=== PATIENT | female | born 1990 | race Caucasian/White ===

== ENCOUNTER 2024-02-13 13:53 | Emergency (ER) | payer BC, SELFPAY ==
--- NOTE | ~2024-02-13 | CT_ITS ---
EXAMINATION: CT abdomen pelvis wo con DATE: 02/13/2024 17:46 INDICATION: right flank pain TECHNIQUE: Computed tomography (CT) of the abdomen and pelvis was performed without intravenous contr ast. Automated exposure control and iterative reconstruction technique were employed. The dose-length product was 241.61 mGy-cm. COMPARISON: None. FINDINGS: Lower thorax: Unremarkable Liver: Normal. Biliary/Gallbladder: Gallbladder is normal. No bile duct dilation. Pancreas: No mass or duct dilation. Spleen: Normal. Adrenals:No mass. Kidneys: No suspicious mass, obstructing stone, or hydronephrosis. GI tract: No small or large bowel dilation. Normal appendix. Mesentery/Peritoneum: No ascites, mass, or free air. Retroperitoneum: No mass. Pelvis: Pelvic organs are within normal limits. Appropriately positioned IUD. 3 mm calcification in t he right lower pelvis. Mid and distal ureters are very difficult to trace in this patient due to comp ressed regional anatomy and paucity of adjacent fat. Soft Tissues: Soft tissues and body wall unremarkable. Bones: No acute osseous finding. IMPRESSION: 3 mm right lower pelvic calcifications which could represent either a distal ureteral stone or pelvic phlebolith. No hydronephrosis. IUD, in good position. Otherwise, no acute abdominal pelvic process. Reviewed, dictated and finalized at location K. IMPRESSION: 3 mm right lower pelvic calcifications which could represent either a distal ur eteral stone or pelvic phlebolith. No hydronephrosis. IUD, in good position. Otherwise, no acute abdominal pelvic process.
[2024-02-13 14:02] VITALS: BP 118/83; PULSE 96; RESP 18; TEMP 36.5; O2SAT 100
[2024-02-13 16:43] LABS: Add Urine Microscopic? YES; Appearance Urine Clear (Clear); Bacteria Urine None Seen /hpf; Bilirubin Urine Negative (Negative); Blood Urine Negative (Negative); Color Urine Yellow (Yellow); Glucose Urine UA Negative (Negative); Ketones Urine Negative (Negative); Leukocyte Esterase Ur Trace LEU/UL (Negative); Need Manual Microscopic Reviewed; Nitrate Urine Negative (Negative); Non Pathogenic Casts 0-2; Protein Urine Negative (Negative); RBC Urine 0-2 /hpf (0-2); Specific Grav Ur 1.003 (1.001-1.035); Squamous Epithelial Cell Urine None Seen /hpf (Few); Urobilinogen Urine 0.2 mg/dL (<2.0); WBC Urine 0-5 /hpf (0-3)
[2024-02-13 16:45] LABS: BEDSIDEPREGUCG Negative (Negative)
[2024-02-13] MEDS: SODIUM CHLORIDE 0.9% IV 1,000 ML 999 ML IV CONT (17:18)
[2024-02-13] MEDS: KETOROLAC 30 MG/ML VIAL (*BKC) IV PUSH (17:18)
[2024-02-13] MEDS: ONDANSETRON INJ 4 MG/2 ML VIAL IV PUSH (17:18)
--- NOTE | 2024-02-13 19:11 | ED.GENADULT ---
HPI - General Adult General Chief complaint: Back Pain/Injury Stated complaint: right flank pain Time Seen by Provider: 02/13/24 16:15 History of Present Illness HPI narrative: Patient is a 33-year-old female who presents ER with right-sided flank you. Ongoing over the weekend. Aching worse with physical movements. Feels deep. Concerned may be a kidney stone. Mild radiation towards abdomen. No urinary frequency urgency or dysuria. No fevers or chills or sweats. No alleviating factors. Related Data Allergies Allergy/AdvReac Type Severity Reaction Status Date / Time No Known Allergies Allergy Unverified 10/11/16 15:49 Review of Systems Constitutional: Constitutional: Reports no additional constitutional complaints Gastrointestinal: Gastrointestinal: Reports no additional gastrointestinal complaints Genitourinary: Genitourinary: Denies hematuria, Denies nocturia, Denies dysuria, Denies pelvic pain and Reports flank pain Musculoskeletal: Musculoskeletal: Reports back pain, Denies arthralgias and Denies joint swelling PMFSH Past Medical History Medical History (Updated 02/13/24 @ 23:15 by John Camacho MD) Healthy female adult Exam Narrative: GENERAL: Well-appearing, well-nourished, and in no acute distress. HEAD: Normocephalic, atraumatic. ENT: Mucous membranes moist. CHEST: Clear to auscultation. No respiratory distress. HEART: Regular rate and rhythm. Normal peripheral pulses. ABDOMEN: Soft, nontender, nondistended. Back: No midline tenderness in T or L-spine. Mild left-sided low back pain urine year old 3. EXTREMITIES: Normal range of motion. No edema. NEURO: Alert and oriented x3. PSYCH: Normal mood and affect. Course Course Emergency Course: Suspect pelvic consultation and not a kidney stone since there is no blood or urinary symptoms. Will treat with anti-inflammatories muscle relaxers. Vital Signs Vital signs: Vital Signs Temperature 97.7 F 02/13/24 14:02 Pulse Rate 96 02/13/24 14:02 Respiratory Rate 18 02/13/24 14:02 Blood Pressure 118/83 02/13/24 14:02 Pulse Oximetry 100 02/13/24 14:02 Temperature 97.7 F 02/13/24 14:02 Pulse Rate 96 02/13/24 14:02 Respiratory Rate 18 02/13/24 14:02 Blood Pressure 118/83 02/13/24 14:02 Pulse Oximetry 100 02/13/24 14:02 Medical Decision Making Vital Signs Vital Signs: Vital Signs Temperature 97.7 F 02/13/24 14:02 Pulse Rate 96 02/13/24 14:02 Respiratory Rate 18 02/13/24 14:02 Blood Pressure 118/83 02/13/24 14:02 Pulse Oximetry 100 02/13/24 14:02 Temperature 97.7 F 02/13/24 14:02 Pulse Rate 96 02/13/24 14:02 Respiratory Rate 18 02/13/24 14:02 Blood Pressure 118/83 02/13/24 14:02 Pulse Oximetry 100 02/13/24 14:02 Lab Data Labs: Lab Results 02/13/24 02/13/24 Range/Units 16:21 16:23 Urine Color Yellow (Yellow) Urine Appearance Clear (Clear) Urine pH 7.0 (5.0-9.0) Ur Specific [place] 1.003 (1.001-1.035) Urine Protein Negative (Negative) mg/dL Urine Glucose (UA) Negative (Negative) mg/dL Urine Ketones Negative (Negative) mg/dL Ur Blood (Man) Negative (Negative) Urine Nitrate Negative (Negative) Urine Bilirubin Negative (Negative) Urine Urobilinogen 0.2 (<2.0) mg/dL Add Ur Microanalysis Reviewed Leukocyte Esterase Rfl Trace H (Negative) BRYCE/UL Urine RBC 0-2 (0-2) /hpf Urine WBC 0-5 (0-3) /hpf Ur Squamous Epith Cells None seen (Few) /hpf Urine Bacteria None seen /hpf Urine Casts 0-2 POC Urine HCG, Qual Negative (Negative) Imaging Data Radiologist's impression: ITS Impressions Abdomen/Pelvis CT 02/13/24 18:19 IMPRESSION: 3 mm right lower pelvic calcifications which could represent either a distal ureteral stone or pelvic phlebolith. No hydronephrosis. IUD, in good position. Otherwise, no acute abdominal pelvic process. Di
== END 2024-02-13 20:14 | disposition home or self-care (01) ==
PROVIDERS: Emergency Provider Emergency Medicine; PCP Internal Medicine
DX: M54.50 Low back pain, unspecified (principal); Z97.5 Presence of (intrauterine) contraceptive device; R93.41 Abnormal radiologic findings on diagnostic imaging of renal pelvis, ureter, or bladder
CPT/HCPCS: 74176; 81001; 81025; 96361; 96374; 96375; 99284; J1885; J2405; J7030